=== PATIENT | female | born 1960 | race Caucasian/White ===

== ENCOUNTER 2021-03-19 14:11 | Emergency (ER) | payer OTHER ==
[~2021-03-19] VITALS: Ht 170.2 cm; Wt 90.7 kg
--- NOTE | 2021-03-19 14:30 | NUR ---
BIB [facility] 88 FROM HOME,C/O RIGHT FLANK PAIN SINCE LAST NIGHT. RATES PAIN 8/10. WILL CONTINUE TO MONITOR THE PATIENT.
--- NOTE | 2021-03-19 16:15 | NUR ---
taken to CT
--- NOTE | 2021-03-19 16:29 | NUR ---
THE PATIENT IS BACK FROM CT
[2021-03-19] MEDS ORDERED: MORPHINE SULFATE INJ 4 MG/ML DISP.SYRIN ONE (16:44)
[2021-03-19 16:52] LABS: BASOPHILS # (AUTO) 0.1 K/uL (0.0-0.2); BASOPHILS % (AUTO) 0.7 % (0.0-2.0); EOSINOPHILS % (AUTO) 0.3 % (0.0-6.0); HEMATOCRIT 41 % (33-45); HEMOGLOBIN 13.1 g/dL (11.5-14.8); LYMPHOCYTES # (AUTO) 1.5 K/uL (0.8-4.8); LYMPHOCYTES % (AUTO) 15.3 % (20.0-44.0); MEAN CORPUSCULAR HGB CONC 33 g/dl (31.0-36.0); MEAN CORPUSCULAR VOLUME 99 fL (82-100); NEUTROPHILS # (AUTO) 7.1 K/uL (1.8-8.9); NEUTROPHILS % (AUTO) 73.7 % (43.0-81.0); PLATELET COUNT (AUTO) 196 K/uL (150-450); RED BLOOD CELL COUNT(AUTO) 4.07 MIL/uL (4.0-5.2); WHITE BLOOD COUNT (AUTO) 9.7 K/uL (4.3-11.0)
[2021-03-19 16:56] LABS: ALBUMIN 2.9 g/dL (3.4-5.0); BILIRUBIN,DIRECT 0.8 mg/dL (0.0-0.2); BILIRUBIN,TOTAL 1.2 mg/dL (0.2-1.0); CALCIUM, SERUM 8.1 mg/dL (8.5-10.1); CREATININE 0.7 mg/dL (0.6-1.3); POTASSIUM 4.6 mmol/L (3.5-5.1); TOTAL PROTEIN, SERUM 9.1 g/dL (6.4-8.2)
[2021-03-19] MEDS ORDERED: ONDANSETRON HCL/PF 4 MG/2 ML VIAL ONE (17:02)
[2021-03-19] MEDS: ONDANSETRON HCL/PF 4 MG/2 ML VIAL IVP ONE (17:07)
[2021-03-19] MEDS: IV NS 0.9% 1,000 ML BAG IV ONE (17:07)
[2021-03-19] MEDS: MORPHINE SULFATE INJ 2 MG/ML DISP.SYRIN IV ONE (17:08)
[2021-03-19 17:32] LABS: BILIRUBIN,URINE Negative (NEGATIVE); COLOR,URINE YELLOW (YELLOW); LEUKOCYTE ESTERASE ,URINE Negative (NEGATIVE); NITRITE, URINE Negative (NEGATIVE); PROTEIN,URINE Negative (NEGATIVE); UGLUCOSE >=1000 mg/dL (NEGATIVE)
[2021-03-19 17:44] LABS: BACTERIA,URINE Few /HPF (None Seen); RBC,URINE 0-2 /HPF (0-2); SQUAMOUS EPITHELIAL CELL,UR Few /HPF (None Seen); WBC,URINE 0-2 /HPF (0-3); YEAST,URINE Few /HPF (None Seen)
[2021-03-19] MEDS ORDERED: HYDR-3980 PO (17:52)
[2021-03-19] MEDS ORDERED: CHLO25CA22 PO (17:52)
[2021-03-19] MEDS ORDERED: INSULIN REGULAR, HUMAN 100 UNIT/ML 10 ML VIAL ONE (17:58)
[2021-03-19] MEDS: INSULIN REGULAR, HUMAN 100 UNIT/ML 10 ML VIAL SQ ONE (17:59)
[2021-03-19] MEDS ORDERED: IBUPROFEN 600 MG TABLET ONE (18:07)
[2021-03-19] MEDS: IBUPROFEN 600 MG TABLET PO ONE (18:22)
[2021-03-19 18:23] VITALS: BP 136/75
--- NOTE | 2021-03-19 18:23 | NUR ---
IV removed. Catheter intact and site benign. Pressure and 4x4 applied to site. No bleeding noted.Patient discharged to home in stable condition. Written and verbal after care instructions given. Patient verbalizes understanding of instruction.
== END 2021-03-19 18:24 | disposition home or self-care (01) ==
LOC: ER 14:12
DX: K80.50 Calculus of bile duct without cholangitis or cholecystitis without obstruction (principal); K74.60 Unspecified cirrhosis of liver; J44.9 Chronic obstructive pulmonary disease, unspecified; E11.9 Type 2 diabetes mellitus without complications; F17.200 Nicotine dependence, unspecified, uncomplicated; Z88.8 Allergy status to other drugs, medicaments and biological substances; Z79.899 Other long term (current) drug therapy
CPT/HCPCS: 36415; 74176; 80048; 80076; 81001; 83690; 85025; 87086; 96361; 96372; 96374; 96375; 99285; J1815; J2270; J2405; J7030

== ENCOUNTER 2023-08-23 22:39 | Inpatient (IN) | payer OTHER ==
[~2023-08-23] VITALS: Ht 170.2 cm; Wt 76.2 kg
[~2023-08-23 22:39] MED LIST: CHLO25CA22 PO; HYDR-3980 PO
[2023-08-23] MEDS ORDERED: CEFEPIME 1 GM VIAL ONE (23:04)
[2023-08-23] MEDS ORDERED: VANCOMYCIN 1 GM /D5W 250 ML PB IV ONE (23:04)
[2023-08-23] MEDS: VANCOMYCIN 1 GM in IV D5W 250 ML IV ONE (23:30)
[2023-08-23] MEDS: CEFEPIME 1 GM in IV D5W 50 ML IV ONE (23:30)
[2023-08-24] MEDS: IV NS 0.9% 1,000 ML BAG IV ONE
[2023-08-24 00:09] LABS: BASOPHILS # (AUTO) 0.1 K/uL (0.0-0.2); BASOPHILS % (AUTO) 0.7 % (0.0-2.0); EOSINOPHILS # (AUTO) 0.5 K/uL (0.0-0.7); HEMATOCRIT 26 % (33-45); HEMOGLOBIN 8.6 g/dL (11.5-14.8); LYMPHOCYTES # (AUTO) 2.9 K/uL (0.8-4.8); LYMPHOCYTES % (AUTO) 27.9 % (20.0-44.0); MEAN CORPUSCULAR HEMOGLOBIN 32 PG (26.0-33.0); MEAN CORPUSCULAR HGB CONC 34 g/dl (31.0-36.0); MEAN CORPUSCULAR VOLUME 94 fL (82-100); MONOCYTES # (AUTO) 1.2 K/uL (0.1-1.30); MONOCYTES % (AUTO) 11.1 % (2.0-12.0); NEUTROPHILS # (AUTO) 5.8 K/uL (1.8-8.9); NEUTROPHILS % (AUTO) 55.3 % (43.0-81.0); PLATELET COUNT (AUTO) 204 K/uL (150-450); RED BLOOD CELL COUNT(AUTO) 2.72 MIL/uL (4.0-5.2); RED CELL DISTRIBUTION WIDTH 16.7 % (11.5-15.0); WHITE BLOOD COUNT (AUTO) 10.5 K/uL (4.3-11.0)
[2023-08-24 00:24] LABS: CALCIUM, SERUM 8.1 mg/dL (8.5-10.1); CARBON DIOXIDE 22 mmol/L (21-32); CHLORIDE 103 mmol/L (98-107); CREATININE 1.2 mg/dL (0.6-1.3); GLUCOSE 106 mg/dL (74-106); POTASSIUM 4.4 mmol/L (3.5-5.1); SODIUM SERUM 133 mmol/L (136-145); UREA NITROGEN, BLOOD 14 mg/dL (7-18)
[2023-08-24 00:29] LABS: ALANINE AMINOTRANSFERASE 21 U/L (12-78); ALKALINE PHOSPHATASE 189 U/L (46-116); ASPARTATE AMINOTRANSFERASE 36 U/L (15-37); BILIRUBIN,DIRECT 0.3 mg/dL (0.0-0.2); BILIRUBIN,TOTAL 0.5 mg/dL (0.2-1.0); TOTAL PROTEIN, SERUM 8.3 g/dL (6.4-8.2)
[2023-08-24 00:32] LABS: LACTIC ACID 1.4 mmol/L (0.4-2.0)
[2023-08-24 00:37] LABS: INR 1.14 (0.91-1.10); PARTIAL THROMBOPLASTIN TIME 29.9 SEC (24.3-34.3)
[2023-08-24 02:45] VITALS: BP 123/59; TEMP 99; O2SAT 97
[2023-08-24] MEDS ORDERED: ONDANSETRON HCL/PF 4 MG/2 ML VIAL IVP PRN (05:30)
[2023-08-24] MEDS ORDERED: DEXTROSE 50%-WATER 50 ML DISP.SYRIN IV PRN (05:30)
[2023-08-24] MEDS: ENOXAPARIN SODIUM 40 MG/0.4 ML DISP.SYRIN SQ SCH (07:03)
[2023-08-24] MEDS: BLOOD SUGAR DIAGNOSTIC 1 EACH STRIP IN SCH (07:30)
[2023-08-24] MEDS: VANCOMYCIN 1 GM in IV D5W 250 ML IV SCH (07:30)
[2023-08-24 08:00] VITALS: BP 134/83; TEMP 98.2; O2SAT 96
[2023-08-24] MEDS ORDERED: CEFAZOLIN 2 GM in IV D5W 100 ML IV SCH (08:00)
[2023-08-24] MEDS: CEFEPIME 2 GM in IV D5W 100 ML IV SCH (08:00)
[2023-08-24] MEDS ORDERED: GABA300C PO (08:36)
[2023-08-24] MEDS ORDERED: INSU100I47 SQ (08:36)
[2023-08-24] MEDS ORDERED: METH10TA2 PO (08:36)
[2023-08-24] MEDS: VANCOMYCIN HCL 1.25 GM in IV D5W 250 ML IV SCH (09:00)
[2023-08-24 16:00] VITALS: BP 137/80; TEMP 98.6; O2SAT 96
[2023-08-24 20:00] VITALS: BP 131/69; TEMP 98.4; O2SAT 94
[2023-08-24] MEDS: HYDROCODONE/APAP 5/325MG TABLET PO PRN (21:29)
[2023-08-24] MEDS: INSULIN REGULAR, HUMAN 100 UNIT/ML 3 ML VIAL SQ PRN (22:00)
[2023-08-25 08:00] VITALS: BP 123/66; TEMP 99.1; O2SAT 92
[2023-08-25] MEDS: MORPHINE SULFATE INJ 2 MG/ML DISP.SYRIN IV PRN (10:29)
[2023-08-25] MEDS: IV NS 0.9% 1,000 ML IV PRN (10:44)
[2023-08-25] MEDS: VANCOMYCIN HCL 1.25 GM in IV D5W 250 ML IV ONE (12:13)
[2023-08-25 16:00] VITALS: BP 111/57; TEMP 98.6; O2SAT 98
[2023-08-25 20:58] VITALS: BP 122/59; TEMP 98.8; O2SAT 95
[2023-08-25] MEDS: diphenhydrAMINE HCL 50 MG/ML VIAL IV PRN (21:58)
[2023-08-26 06:40] LABS: CALCIUM, SERUM 7.7 mg/dL (8.5-10.1)
[2023-08-26 08:00] VITALS: BP 119/71; TEMP 99; O2SAT 92
[2023-08-26] MEDS: VANCOMYCIN 1 GM in IV D5W 250ml IV SCH (11:31)
[2023-08-26 16:00] VITALS: BP 123/87; TEMP 98.4; O2SAT 98
[2023-08-26 20:00] VITALS: BP 103/90; TEMP 98.4; O2SAT 97
[2023-08-26 22:06] VITALS: BP 123/66
[2023-08-26] MEDS: ACETAMINOPHEN 325 MG TABLET PO PRN (23:52)
[2023-08-27 01:08] VITALS: BP 128/68
[2023-08-27] MEDS: oxyCODONE/APAP (5/325 MG) 1 UDTAB TABLET PO PRN (02:57)
[2023-08-27 08:00] VITALS: BP 125/71; TEMP 99; O2SAT 94
[2023-08-27 08:24] LABS: CALCIUM, SERUM 8.4 mg/dL (8.5-10.1); CREATININE 1.2 mg/dL (0.6-1.3); POTASSIUM 4.6 mmol/L (3.5-5.1)
[2023-08-27] MEDS: THERAHONEY GEL 1.5 OZ TUBE TP SCH (09:30)
[2023-08-27] MEDS: CEFEPIME 2 GM in IV D5W 100 ML IV SCH (10:03)
[2023-08-27 16:00] VITALS: BP 117/68; TEMP 98.6; O2SAT 97
[2023-08-27] MEDS: ARGININE/GLUTAMINE/CALCIUM BMB 1 EACH POWD.PACK PO SCH (17:00)
[2023-08-27] MEDS: PROSOURCE / PROSTAT (PYXIS) 30 ML UDC PO SCH (17:00)
[2023-08-27 20:00] VITALS: BP 133/67; TEMP 98.1; O2SAT 99
[2023-08-28 07:00] VITALS: BP 129/73; TEMP 97.9; O2SAT 97
[2023-08-28] MEDS: ZINC SULFATE 220 MG CAPSULE PO SCH (08:31)
[2023-08-28] MEDS: MULTIVIT W/MINERALS 1 TAB TABLET PO SCH (08:32)
[2023-08-28] MEDS ORDERED: NA PHOS,M-B/NA PHOS,DI-BA 1 EA ENEMA RC PRN (10:00)
[2023-08-28] MEDS: DOCUSATE SODIUM 250 MG CAPSULE PO SCH (10:08)
[2023-08-28] MEDS: GABAPENTIN 300 MG CAPSULE PO SCH (10:52)
[2023-08-28] MEDS: oxyCODONE/APAP (5/325 MG) 1 UDTAB TABLET PO PRN (10:53)
[2023-08-28] MEDS: VANCOMYCIN HCL 1.25 GM in IV D5W 250 ML IV SCH (12:07)
[2023-08-28 16:00] VITALS: BP 114/73; TEMP 97.7; O2SAT 97
[2023-08-28 20:00] VITALS: BP 115/58; TEMP 98.4; O2SAT 95
[2023-08-28] MEDS: QUETIAPINE FUMARATE 25 MG TABLET PO SCH (23:03)
[2023-08-29 08:00] VITALS: BP 103/46; TEMP 98.8; O2SAT 97
[2023-08-29] MEDS: QUETIAPINE FUMARATE 25 MG TABLET PO SCH (08:20)
[2023-08-29] MEDS ORDERED: Z GUARD REMEDY 4 OZ OINT TP PRN (09:30)
[2023-08-29] MEDS: Z GUARD REMEDY 4 OZ OINT TP SCH (10:15)
[2023-08-29 12:43] LABS: CALCIUM, SERUM 8.9 mg/dL (8.5-10.1); CREATININE 1.2 mg/dL (0.6-1.3)
[2023-08-29] MEDS ORDERED: VANCOMYCIN HCL 1.25 GM in IV D5W 250 ML IV SCH (14:00)
[2023-08-29] MEDS ORDERED: CLOTRIMAZOLE 1% 15 GM TUBE TP SCH (17:00)
== END 2023-08-29 13:25 | disposition left against medical advice (07) | DRG 383 ==
LOC: ER 22:42 → MED 08-24 01:36
PROVIDERS: ADMIT Nurse Practitioner Acute Care
PROC: 05HA33Z Insertion of Infusion Device into Left Brachial Vein, Percutaneous Approach (ICD-10-PCS; principal; 2023-08-27)
PROC: B54NZZA Ultrasonography of Left Upper Extremity Veins, Guidance (ICD-10-PCS; 2023-08-27)
DX: L03.317 Cellulitis of buttock (principal); L89.313 Pressure ulcer of right buttock, stage 3; I77.2 Rupture of artery; E44.1 Mild protein-calorie malnutrition; L89.329 Pressure ulcer of left buttock, unspecified stage; E87.1 Hypo-osmolality and hyponatremia; E88.09 Other disorders of plasma-protein metabolism, not elsewhere classified; D64.9 Anemia, unspecified; E11.9 Type 2 diabetes mellitus without complications; L03.115 Cellulitis of right lower limb; L03.818 Cellulitis of other sites; L03.116 Cellulitis of left lower limb; F39 Unspecified mood [affective] disorder; F41.9 Anxiety disorder, unspecified; J44.9 Chronic obstructive pulmonary disease, unspecified; M24.571 Contracture, right ankle; M24.572 Contracture, left ankle; Z74.01 Bed confinement status; Z79.4 Long term (current) use of insulin; Z99.3 Dependence on wheelchair; R91.1 Solitary pulmonary nodule; K62.89 Other specified diseases of anus and rectum; J43.9 Emphysema, unspecified; W05.0XXA Fall from non-moving wheelchair, initial encounter; Y93.9 Activity, unspecified; Y92.009 Unspecified place in unspecified non-institutional (private) residence as the place of occurrence of the external cause; I70.25 Atherosclerosis of native arteries of other extremities with ulceration; S81.802A Unspecified open wound, left lower leg, initial encounter; S81.801A Unspecified open wound, right lower leg, initial encounter; X58.XXXA Exposure to other specified factors, initial encounter; Z68.26 Body mass index [BMI] 26.0-26.9, adult; Z91.148 Patient's other noncompliance with medication regimen for other reason; Z91.199 Patient's noncompliance with other medical treatment and regimen due to unspecified reason; L89.629 Pressure ulcer of left heel, unspecified stage; L89.619 Pressure ulcer of right heel, unspecified stage
CPT/HCPCS: 36410; 36415; 71045-TC; 72192-TC; 80048-TC; 80076-TC; 80202-TC; 82962-TC; 83605-TC; 84484-TC; 85025-TC; 85730-TC; 87040-TC; 97110-TC; 97530-TC; A4223; A6403; G0378; J0692; J1200; J1650; J1815; J2270; J3370; J7030; J7050; J7060

== ENCOUNTER 2023-09-22 22:56 | Inpatient (IN) | payer OTHER ==
[~2023-09-22] VITALS: Ht 170.2 cm; Wt 72.6 kg
[~2023-09-22 22:56] MED LIST changes: -CHLO25CA22 PO; +GABA300C PO; -HYDR-3980 PO; +INSU100I47 SQ; +METH10TA2 PO
[2023-09-22] MEDS: IBUPROFEN 400 MG TABLET PO ONE (23:30)
[2023-09-22] MEDS ORDERED: IBUPROFEN 400 MG TABLET ONE (23:34)
[2023-09-23] MEDS ORDERED: VANCOMYCIN 1 GM in IV D5W 250 ML IV ONE
[2023-09-23 00:36] LABS: BASOPHILS # (AUTO) 0.1 K/uL (0.0-0.2); BASOPHILS % (AUTO) 0.8 % (0.0-2.0); EOSINOPHILS # (AUTO) 0.3 K/uL (0.0-0.7); EOSINOPHILS % (AUTO) 3.8 % (0.0-6.0); HEMATOCRIT 25 % (33-45); HEMOGLOBIN 8.4 g/dL (11.5-14.8); LYMPHOCYTES # (AUTO) 3.2 K/uL (0.8-4.8); LYMPHOCYTES % (AUTO) 37.8 % (20.0-44.0); MEAN CORPUSCULAR HEMOGLOBIN 31 PG (26.0-33.0); MEAN CORPUSCULAR HGB CONC 34 g/dl (31.0-36.0); MEAN CORPUSCULAR VOLUME 92 fL (82-100); MONOCYTES # (AUTO) 0.7 K/uL (0.1-1.30); MONOCYTES % (AUTO) 8.4 % (2.0-12.0); NEUTROPHILS # (AUTO) 4.1 K/uL (1.8-8.9); NEUTROPHILS % (AUTO) 49.2 % (43.0-81.0); PLATELET COUNT (AUTO) 241 K/uL (150-450); RED BLOOD CELL COUNT(AUTO) 2.71 MIL/uL (4.0-5.2); RED CELL DISTRIBUTION WIDTH 13.8 % (11.5-15.0); WHITE BLOOD COUNT (AUTO) 8.4 K/uL (4.3-11.0)
[2023-09-23 01:08] LABS: CALCIUM, SERUM 7.8 mg/dL (8.5-10.1); POTASSIUM 3.8 mmol/L (3.5-5.1)
[2023-09-23 01:09] LABS: BILIRUBIN,DIRECT 0.4 mg/dL (0.0-0.2); BILIRUBIN,TOTAL 0.7 mg/dL (0.2-1.0); TOTAL PROTEIN, SERUM 8.3 g/dL (6.4-8.2)
[2023-09-23 01:14] LABS: INR 1.18 (0.91-1.10); PARTIAL THROMBOPLASTIN TIME 31.7 SEC (24.3-34.3); PROTHROMBIN TIME 12.4 SECS (9.2-11.1)
[2023-09-23 01:16] LABS: LACTIC ACID 0.9 mmol/L (0.4-2.0)
[2023-09-23 04:05] LABS: APPEARANCE,URINE CLEAR (CLEAR); BILIRUBIN,URINE NEGATIVE (NEGATIVE); BLOOD, URINE 3+ Ery/uL (NEGATIVE); COLOR,URINE YELLOW (YELLOW); KETONES,URINE NEGATIVE (NEGATIVE); LEUKOCYTE ESTERASE ,URINE 1+ (NEGATIVE); NITRITE, URINE NEGATIVE (NEGATIVE); PROTEIN,URINE NEGATIVE (NEGATIVE); UGLUCOSE NEGATIVE (NEGATIVE)
[2023-09-23 06:17] LABS: ADD URINE CULTURE YES; BACTERIA,URINE 2+ /HPF (None Seen)
[2023-09-23] MEDS: METHADONE HCL 10 MG TABLET PO SCH (09:36)
[2023-09-23] MEDS: GABAPENTIN 300 MG CAPSULE PO SCH (09:36)
[2023-09-23] MEDS ORDERED: MAG HYDROX/AL HYDROX/SIMETH 30 ML UDC PO PRN (11:30)
[2023-09-23] MEDS ORDERED: ONDANSETRON HCL/PF 4 MG/2 ML VIAL IVP PRN (11:30)
[2023-09-23] MEDS ORDERED: Z GUARD REMEDY 4 OZ OINT TP PRN (11:30)
[2023-09-23] MEDS ORDERED: DEXTROSE 50%-WATER 50 ML DISP.SYRIN IV PRN (11:30)
[2023-09-23] MEDS ORDERED: MAGNESIUM HYDROXIDE 30 ML UDC PO PRN (11:30)
[2023-09-23] MEDS ORDERED: INSULIN REGULAR, HUMAN 100 UNIT/ML 3 ML VIAL SQ PRN (11:30)
[2023-09-23 12:00] VITALS: BP 136/94; TEMP 98; O2SAT 99
[2023-09-23] MEDS: VANCOMYCIN HCL 1.25 GM in IV D5W 250 ML IV ONE (12:22)
[2023-09-23] MEDS: CEFTRIAXONE 1 G in IV D5W 50 ML IV SCH (12:22)
[2023-09-23] MEDS: IV NS 0.9% 1,000 ML IV PRN (12:22)
[2023-09-23] MEDS: BLOOD SUGAR DIAGNOSTIC 1 EACH STRIP IN SCH (12:24)
[2023-09-23 16:00] VITALS: BP 112/58; TEMP 97.5; O2SAT 90
[2023-09-23 20:00] VITALS: BP 119/54; TEMP 97.9; O2SAT 92
[2023-09-23] MEDS: ENOXAPARIN SODIUM 40 MG/0.4 ML DISP.SYRIN SQ SCH (20:58)
[2023-09-23] MEDS: MORPHINE SULFATE INJ 2 MG/ML DISP.SYRIN IV PRN (22:15)
[2023-09-23] MEDS: VANCOMYCIN 750 MG in IV D5W 250 ML IV SCH (23:05)
[2023-09-24] MEDS ORDERED: TRAZODONE 50 MG TABLET PO PRN (01:00)
[2023-09-24] MEDS: TRAZODONE 50 MG TABLET PO ONE (01:00)
[2023-09-24] MEDS: diphenhydrAMINE HCL 50 MG CAPSULE PO PRN (01:40)
[2023-09-24 08:00] VITALS: BP 120/60; TEMP 97.7; O2SAT 93
[2023-09-24] MEDS: CEFTRIAXONE 1 G VIAL IM ONE (14:47)
[2023-09-24 16:00] VITALS: BP 119/71; TEMP 97.9; O2SAT 96
[2023-09-24 20:00] VITALS: BP 123/67; TEMP 98.1; O2SAT 98
[2023-09-24] MEDS: CLINDAMYCIN HCL 150 MG CAPSULE PO SCH (20:45)
[2023-09-24] MEDS: *INSULIN REGULAR(HUMULIN R)HUM 100 UNIT/ML VIAL SQ PRN (21:47)
[2023-09-24] MEDS ORDERED: TRAZODONE 50 MG TABLET PO ONE (22:00)
[2023-09-25] MEDS ORDERED: LEVO500T90 PO (10:16)
[2023-09-25] MEDS: ACETAMINOPHEN 325 MG TABLET PO PRN (10:42)
[2023-09-25] MEDS ORDERED: CEFTRIAXONE 1 G VIAL IM SCH (14:00)
== END 2023-09-25 16:15 | disposition home or self-care (01) | DRG 383 ==
LOC: ER 23:18 → TRANSITION 09-23 05:45 → MED 09-23 07:44
PROVIDERS: ADMIT Internal Medicine; ATTEND Internal Medicine
DX: L03.116 Cellulitis of left lower limb (principal); E43 Unspecified severe protein-calorie malnutrition; E11.40 Type 2 diabetes mellitus with diabetic neuropathy, unspecified; S71.002A Unspecified open wound, left hip, initial encounter; S81.802A Unspecified open wound, left lower leg, initial encounter; E88.09 Other disorders of plasma-protein metabolism, not elsewhere classified; S91.302A Unspecified open wound, left foot, initial encounter; D64.9 Anemia, unspecified; E86.0 Dehydration; Z79.4 Long term (current) use of insulin; G89.29 Other chronic pain; R53.1 Weakness; Z68.25 Body mass index [BMI] 25.0-25.9, adult; X58.XXXA Exposure to other specified factors, initial encounter; Y93.9 Activity, unspecified; Y92.009 Unspecified place in unspecified non-institutional (private) residence as the place of occurrence of the external cause; S31.829A Unspecified open wound of left buttock, initial encounter; Z99.3 Dependence on wheelchair
CPT/HCPCS: 36415; 71045-TC; 80048-TC; 80076-TC; 81001; 82962-TC; 83605-TC; 85025-TC; 85730-TC; 87040-TC; 87086-TC; 97112-TC; 97530-TC; A4223; A6403; G0378; J0696; J1650; J1815; J2270; J3370; J3371; J7060; Q0163

== ENCOUNTER 2023-11-26 13:43 | Emergency (ER) | payer OTHER ==
[~2023-11-26] VITALS: Ht 167.6 cm; Wt 70.3 kg
[~2023-11-26 13:43] MED LIST changes: +AMOX-430 PO; +DOXY-326 PO
[2023-11-26 13:51] VITALS: TEMP 99
[2023-11-26] MEDS ORDERED: CEPH500C2 PO (17:09)
[2023-11-26] MEDS ORDERED: SULF1TAB48 PO (17:09)
[2023-11-26 17:22] VITALS: BP 115/60; O2SAT 99
== END 2023-11-26 17:21 | disposition home or self-care (01) ==
LOC: ER 14:05
DX: L03.116 Cellulitis of left lower limb (principal); E11.621 Type 2 diabetes mellitus with foot ulcer; F19.10 Other psychoactive substance abuse, uncomplicated; F17.200 Nicotine dependence, unspecified, uncomplicated; Z88.8 Allergy status to other drugs, medicaments and biological substances; Z59.00 Homelessness unspecified
CPT/HCPCS: 73630-TC